=== PATIENT | female | born 1995 | race Caucasian/White ===

== ENCOUNTER 2022-11-26 21:03 | Emergency (ER) | payer OTHER, SELFPAY ==
[2022-11-26] VITALS (17 sets, daily range): BP systolic 111–124; BP diastolic 60–67; PULSE 77–101; RESP 11–35; TEMP 36.6; O2SAT 99–100
--- NOTE | 2022-11-26 21:00 | RT.EKG_ITS ---
APPROVED REPORT Exam: Resting ECG Reason for Exam: chest pain Patient Location: E HR:83 bpm ECG Measurements Heart Rate 83 AXIS MN 153 P 50 QRSd 88 QRS 70 QT 363 T 16 QTc 425 Conclusion Sinus rhythm...normal P axis, V-rate 60- 99
--- NOTE | 2022-11-26 21:17 | ED.GENADUL_ITS ---
Discharge Plan Disposition Patient Disposition: Home Condition: Good Discharge Details Clinical Impression: Chest pain Primary Care Provider: None,None ED Provider: Elvia Lucas Home Meds and New Rx's Prescriptions: Continued ondansetron HCl 4 mg tablet 4 mg PO Q8H PRN (Reason: nausea and vomiting) Qty: 20 0RF PNV 119-iron fum-folic acid 29 mg iron- 1 mg tablet 29 tab PO 1XD Discharge Instructions Instructions: Chest Pain (ED) Additional Instructions: Follow-up with your [facility] [employer] [employer] on Monday as scheduled. Return to ED for severe chest pain or difficulty breathing. Tylenol 650 mg every 6 hours as needed for pain. Ice to affected area Medical Decision Making Patient has a number of complaints. She has normal vital signs and appears nontoxic. She was reassured. Her initial EKG is normal. Labs are pending at this time. Symptoms are not suggestive of pulmonary embolism, pneumonia, etc. We will get a one-shot chest x-ray on her. 2300. Patient has been updated on her test results. She has a follow-up appointment with her [employer] on Monday. I feel comfortable sending her home and have reassured her. She will return to the ED for severe persistent chest pain, shortness of breath, fever of 100.4 or above, upper respiratory symptoms, any other concerns. Just prior to d/c the patient's mentioned to me that the patient tripped and fell on her left side several days ago. She told me she slipped on stairs and landed on her R side. She is not sure if she hit her chest but there is no chest wall TTP. She remains non toxic appearing. Medical Records Medical records reviewed: Yes I reviewed the patient's medical records. Imaging Data Radiologic Study: Imaging: X-Ray (CXR: NAD) Lab Data Lab results reviewed: Yes I reviewed the patient's lab results. Lab results narrative: Patient has a white blood cell count of 12.1 thousand with 63 polys and 29 lymphs. Her mag is 1.6. Anion gap is 12.7. Her beta quant is 38,776. ECG Data Attestation: I personally reviewed and interpreted this ECG (s) as follows: ( Normal sinus rhythm at 83, normal intervals and EKG.) HPI General Date/Time Provider Initiated Documentation: 11/26/22 21:15 . HPI Narrative: This 27-year-old female patient presents with a chief complaint of chest pain. The patient states that for the past 2 days she has been intermittently getting brief episodes of chest pain. She says it starts in her hand and goes up her arm and to her upper left chest. Usually is fairly transient but tonight it l asted for 10 minutes and she decided to come to the ER. She says its an aching pain and not sharp. It does not go into her back or jaw. She cannot bring it on by doing anything. The patient states the discomfort seems to affect the 3 middle fingers in her left hand. She has had no fever or chills, cough or cold, shortness of breath. She says she has had a little bit of vague discomfort in her belly on the right-hand side but it is resolved. She says sometimes she feels like she has a teeny bit of numbness in an area on her left lateral thigh and underneath her left upper arm. She has no dysuria. She has had nausea but does not like the Zofran because it gives her a headache. She is not sure when her last menstrual period was and is . She thinks it was in August. She did have an ultrasound in her doctor's office on Monday showing an IUP. She has had a SA whitish vaginal d/c but no bleeding. She has no unusual FMH including CAD. Related Data Home Medications Medication Instructions Recorded Confirmed ondansetron HCl 4 mg tablet 4 mg PO Q8H PRN nausea and 10/31/22 11/26/22 vomiting #20 tabs vitamins no.119-iron 29 tab PO 1XD 11/14/22 11/26/22 fumarate 29 mg-folic acid 1 mg tablet Previous Rx's Medication Instructions Recorded ondansetron HCl 4 mg tablet 4 mg PO Q8H PRN nausea and 10/31/22 vomiting #20 tabs Allergies Allergy/AdvReac Type Severity Reaction Status Date / Time No Known Allergies Allergy Verified 11/26/22 21:12 General Stated Complaint: Chest Pain CHARLENE: 3 Review of Systems Constitutional Constitutional: Denies chills, Denies fever(s), Denies headache(s) and Denies weakness Eyes Eyes: Denies diplopia and Reports other (no redness) ENT Ears, Nose, Mouth, and Throat: Denies otalgia, Denies headache(s), Denies nasal congestion, Denies nasal discharge, Denies neck pain and Denies sore throat Cardiovascular Cardiovascular: Reports chest pain (had same, resolved), Denies palpitations and Denies dyspnea Respiratory Respiratory: Denies cough and Denies dyspnea Gastrointestinal Gastrointestinal: Denies abdominal pain, Reports diarrhea, Denies nausea and Denies vomiting Genitourinary Genitourinary: Denies dysuria Musculoskeletal Musculoskeletal: Denies myalgias, Denies muscle weakness, Denies neck pain, Denies numbness and Reports other (edema) Integumentary/Breasts Skin/Breast: Denies change in pigmentation and Denies rash Neurologic Neurologic: Denies headache(s), Denies numbness and Denies weakness Endocrine Endocrine: Denies palpitations PFSH All Active Problems Chest pain (Acute) Ovarian cyst (Acute) Left side. Present for 2 years per pt Current smoker (Acute) Surgical History History of section Family History Aunt Breast cancer Maternal Social History Smoking/Tobacco Use Status: Current every day Tobacco Type: e-cigarettes Quit status: considering quitting Counseling given: provider counseling Smoking risk assessment performed?: Yes Alcohol Intake: never Drug use: Daily Substance use type: marijuana Counseling given: Yes Sexually active: Yes Do you think of yourself as: straight/heterosexual Current gender identity: female Additional Social history: unable to answer privately Female Reproductive History Menstrual control method: none History History 2 Para 1 Hx # Term Pregnancies 1 Multiple births Hx # Pregnancies Ectopic pregnancies AB induced Hx Number of Living Children 1 AB spontaneous Past Pregnancies Del. Date GA/Weeks # Preg Succ Route Wgt Sex Labor Lgth Anesth esia Location Prov Complic 06/07/18 41 No Yes 2948.35 g Male [place] Delivery Date: 06/07/18 Last Updated by: Lydia Xavier [employer]OND SELECTOR Nuchal cord, Abimael Exam Const General: no acute distress, well developed, well groomed and anxious (mild) Nutritional Appearance: well nourished Orientation: alert and oriented x3 HENMT Head: normocephalic and atraumatic Ears: external ears normal Mouth: oropharynx normal and moist mucous membranes Throat: posterior oropharynx normal Eyes Conjunctivae: conjunctivae normal Neck Neck: full ROM and supple Chest Chest: normal inspection of the chest Resp Effort & Inspection: normal respiratory effort Auscultation: clear to auscultation bilaterally Cardio Rate: regular rate Rhythm: regular rhythm Heart Sounds: no murmurs and no rubs GI Inspection: normal to inspection Palpation: soft, nontender and other (non distended, obese) Auscultation: normal bowel sounds Skin General skin exam: no rashes or lesions noted and other (pink, warm, dry) Neuro General: patient alert, patient awake and patient oriented x3 Speech: speech normal Motor: other (LUJAN) Sensory Exam: no sensory deficits noted Extrem General: normal to inspection, full ROM and pedal edema present Psych Mental Status: mental status grossly normal Speech and Movement: speech and movement normal Affect: normal affect Course Vital Signs Vital signs: Vital Signs Pulse 88 11/26/22 21:08 Respiratory Rate 18 11/26/22 21:08 Pulse Oximetry 100 11/26/22 21:08 Pulse 88 11/26/22 21:08 Respiratory Rate 18 11/26/22 21:13 Respiratory Effort Normal, Non-Labored 11/26/22 21:13 Respiratory Depth Normal 11/26/22 21:13 Respiratory Pattern Normal 11/26/22 21:13 Blood Pressure 124/60 11/26/22 21:13 Blood Pressure Position Supine 11/26/22 21:08 Pulse Oximetry 100 11/26/22 21:08 Oxygen Delivery Method Room Air 11/26/22 21:08 Oxygen Flow Rate 0 11/26/22 21:08 Pain Level 8 11/26/22 21:08
[2022-11-26] MEDS: Normal Saline 1,000 ML 1000 ML IV (21:35)
[2022-11-26 21:46] LABS: Abs Immature Grans 0.04 10^3/uL (0.0-0.06); Absolute Basophil Count 0.02 10^3/uL (0.0-0.2); Absolute Eosinophil Count 0.11 10^3/uL (0.0-0.7); Absolute Lymphocyte Count 3.45 10^3/uL (1.2-3.4); Absolute Monocyte Count 0.87 10^3/uL (0.1-0.8); Absolute Neutrophil Count 7.57 10^3/uL (1.2-6.7); Basophils % 0.2; Eosinophils % 0.9; HCT 37.6 % (36.0-46.0); Immature Grans % 0.3; Lymphocytes % 28.6; MCH 31.5 pg (27.0-33.0); MCHC 34.6 % (32.0-36.0); MCV 91 fL (80-95); MPV 10.7 fL (8.0-11.0); Monocytes % 7.2; Neutrophils % 62.8; Platelet Count 258 10^3/uL (130-400); RBC 4.13 10^6/uL (3.93-5.22); RDW 12.1 % (11.7-14.6); RDW-SD 40.8 fL; WBC 12.06 10^3/uL (4.4-10.8)
[2022-11-26 22:21] LABS: ALT 38 U/L (14-59); AST 19 U/L (15-37); Albumin 3.8 g/dL (3.4-5.0); Alkaline Phosphatase 74 U/L (46-116); Anion Gap 12.7 mmol/L (3-11); BUN 8 mg/dL (7-18); Bilirubin, Total 0.3 mg/dL (0.2-1.0); CO2 24.3 mmol/L (21.0-32.0); CREATININE 0.8 mg/dL (0.55-1.02); Calcium 9.6 mg/dL (8.5-10.1); Chloride 101 mmol/L (98-107); Glucose 85 mg/dL (74-106); Magnesium 1.6 mg/dL (1.8-2.4); Potassium 3.5 mmol/L (3.5-5.1); Sodium 138 mmol/L (136-145); Total Protein 7.2 g/dL (6.4-8.2); Troponin I < 50 ng/L (<or=60)
--- NOTE | 2022-11-26 22:30 | DI.RAD_ITS ---
Exam(s) XR PORTABLE CHEST AP EXAM: XR PORTABLE CHEST AP CLINICAL HISTORY: L sided CP TECHNIQUE: 2D digital imaging was performed of the chest. One image was obtained. An AP view was ob tained. COMPARISON: No exams were available for comparison FINDINGS: The examination is limited due to patient motion artifact. MEDIASTINUM: Normal. HEART: Normal. PULMONARY VASCULATURE: Normal. LUNGS: Clear. PLEURAL SPACE: No pleural effusion or pneumothorax. BONE:Within normal limits for the patient's age. OTHER FINDINGS:Normal. IMPRESSION: No acute pulmonary findings. DATA REPOSITORY: RADIATION DOSE DELIVERED:
--- NOTE | 2022-11-26 23:51 | DI.VRAD_ITS ---
PROCEDURE INFORMATION: Exam: XR Chest Exam date and time: 11/26/2022 11:22 PM Age: 27 years old Clinical indication: Pain; Chest pressure and left-sided TECHNIQUE: Imaging protocol: Radiologic exam of the chest. Views: 1 view. COMPARISON: No relevant prior studies available. FINDINGS: Lungs: Unremarkable. No consolidation. Pleural spaces: Unremarkable. No pleural effusion. No pneumothorax. Heart/Mediastinum: Unremarkable. No cardiomegaly. Bones/joints: Unremarkable. IMPRESSION: No acute findings. Dictated and Authenticated by: Flakito Tello MD. Ordering:VIJAY Gan MD
== END 2022-11-26 23:39 | disposition home or self-care (01) ==
PROVIDERS: Emergency Provider Emergency Medicine
DX: R10.11 Right upper quadrant pain (principal); R10.31 Right lower quadrant pain; N83.202 Unspecified ovarian cyst, left side; F17.290 Nicotine dependence, other tobacco product, uncomplicated
CPT/HCPCS: 36415; 80053; 93005; 96360; 96361; 99284; 71045; 83735; 84484; 84702; 85025; 93010